=== PATIENT | female | born 1935 | race Hispanic/Latino ===

== ENCOUNTER → 2020-06-09 | Outpatient (CLI) | payer MEDICARE ==
[~2020-06-09] MED LIST: IOPAMIDOL 370 MG/ML 200 ML INFUS..BTL INJ ONE; REGADENOSON 0.4 MG/5 ML SYR IV ONE; SODIUM CHLORIDE 0.9% 100 ML ONE
[2020-06-09 09:52] LABS: BLOOD UREA NITROGEN 17 mg/dL (7-26); BUN/CREATININE RATIO 24 (6-25); EST GLOMERULAR FILTRATION RATE > 60 ML/MIN (60-)
--- NOTE | 2020-06-09 15:24 | Diagnostic Imaging Report ---
EXAM: CT Angiogram Chest WITH contrast INDICATION: Thoracic aortic aneurysm COMPARISON: None. TECHNIQUE: Chest was scanned utilizing a multidetector helical scanner from the lung apex through the level of the adrenal glands after administration of IV contrast in arterial phase. Coronal and sagittal reformations were obtained. CT Angiogram protocol was performed. 3D reconstruction was performed and viewed on dedicated workstation. Dose modulation, iterative reconstruction, and/or weight based adjustment of the mA/kV was utilized to reduce the radiation dose to as low as reasonably achievable. IV CONTRAST: 100 mL of Isovue 370 RADIATION DOSE: Total DLP: 336 mGy*cm COMPLICATIONS: None FINDINGS: VASCULAR FINDINGS: Thoracic aorta: Aortic Annulus: 2.3 cm Sinus of Valsalva: 3.4 cm Ascending Aorta at level of PA: 4.3 cm Mid Arch: 2.6 cm Proximal Descendin.2 cm Mid Descendin.1 cm Distal Descendin.0 cm Aortic hiatus: 2.0 cm. Two vessel aortic arch with common origin of the brachiocephalic and left common carotid artery. No evidence of aortic dissection. Moderate atherosclerotic changes within the thoracic aorta. The main pulmonary artery is not enlarged (2.3cm). No evidence of central pulmonary embolism. LINES/ TUBES: None. LUNGS AND AIRWAYS: The central airways are patent. No focal consolidation or pulmonary edema. Mild subsegmental atelectasis of the upper and lower lobes bilaterally. 6 mm right lower lobe pulmonary nodule (axial image 70). PLEURA: The pleural spaces are clear. HEART AND MEDIASTINUM: The thyroid gland is normal. No mediastinal, hilar or axillary lymphadenopathy. No cardiomegaly or pericardial effusion. UPPER ABDOMEN: No acute findings in the upper abdomen. Multiple partially visualized right upper pole renal cysts measure up to 3.2 cm. BONES/SOFT TISSUES: No acute osseous abnormality. No suspicious lytic or blastic lesion. Mild multilevel degenerative changes. 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 6 mm right lower lobe pulmonary nodule. If the patient is high risk, chest CT is optional at 12 months. If the patient is low risk, no further follow-up imaging is necessary. Signed by: Adrián Cevallos MD on 06/09/2020 3:20 PM
== END ==
LOC: NM 08:27
PROVIDERS: ATTEND Internal Medicine Cardiovascular Disease
DX: R07.9 Chest pain, unspecified (principal); I71.2 Thoracic aortic aneurysm, without rupture
CPT/HCPCS: 36415; 71275; 78452; 82565; 84520; 93017; 93306; A9502; J7050; Q9967